=== PATIENT | female | born 1950 | race Caucasian/White ===

== ENCOUNTER → 2016-03-13 | Outpatient (REF) | payer MEDICARE ==
[2016-03-15 14:31] LABS: Lyme Disease IgG/IgM Antibodie <0.91 ISR (0.00-0.90); Lyme Disease IgM Ab Quantitati <0.80 index (0.00-0.79)
== END ==
LOC: M SFHCCLAY 10:19
PROVIDERS: ATTEND Nurse Practitioner Family
DX: Z13.89 Encounter for screening for other disorder (principal); W57.XXXA Bitten or stung by nonvenomous insect and other nonvenomous arthropods, initial encounter

== ENCOUNTER → 2016-09-26 | Outpatient (REF) | payer MEDICARE ==
[2016-09-26 11:34] LABS: MEAN CORPUSCULAR HEMOGLOBIN 32.8 pg (27.0-33.0); MEAN CORPUSCULAR HGB CONC 33.3 g/dl (32.0-36.5); MEAN CORPUSCULAR VOLUME 98.4 fl (80.0-96.0); RED CELL DISTRIBUTION WIDTH 12.2 % (11.5-14.5); WHITE BLOOD COUNT 3.8 K/mm3 (4.0-10.0)
[2016-09-26 12:56] LABS: ALBUMIN 3.7 GM/DL (3.2-5.2); ALBUMIN/GLOBULIN RATIO 1.42 (1.00-1.93); ALKALINE PHOSPHATASE 88 U/L (45-117); ALT/SGPT 23 U/L (12-78); ANION GAP 6 MEQ/L (8-16); AST/SGOT 17 U/L (15-37); BILIRUBIN,TOTAL 0.6 MG/DL (0.2-1.0); BLOOD UREA NITROGEN 17 MG/DL (7-18); CALCIUM LEVEL 9.3 MG/DL (8.8-10.2); CARBON DIOXIDE LEVEL 29 MEQ/L (21-32); CHLORIDE LEVEL 101 MEQ/L (98-107); CREATININE FOR GFR 0.66 MG/DL (0.55-1.02); GLOMERULAR FILTRATION RATE > 60.0 (>45); GLUCOSE, FASTING 92 MG/DL (80-110); POTASSIUM SERUM 4.4 MEQ/L (3.5-5.1); SODIUM LEVEL 136 MEQ/L (136-145); TOTAL PROTEIN 6.3 GM/DL (6.4-8.2)
== END ==
LOC: M SFHCCLAY 08:25
PROVIDERS: ATTEND Nurse Practitioner Family
DX: F32.9 Major depressive disorder, single episode, unspecified (principal); Z79.899 Other long term (current) drug therapy

== ENCOUNTER → 2017-04-02 | Outpatient (REF) | payer MEDICARE ==
[2017-04-02 11:52] LABS: CHOLESTEROL LEVEL 226 MG/DL (<200); CHOLESTEROL RISK RATIO 2.404 (<5); HDL CHOLESTEROL 94 MG/DL (>40); LDL CHOLESTEROL 118.8 MG/DL (<100); NON-HDL-C 132 MG/DL; TRIGLYCERIDES LEVEL 66 MG/DL (<150)
== END ==
LOC: M SFHCCLAY 08:28
DX: E78.4 Other hyperlipidemia (principal); E55.9 Vitamin D deficiency, unspecified
CPT/HCPCS: 82306

== ENCOUNTER → 2017-10-24 | Outpatient (REF) | payer MEDICARE ==
[2017-10-24 11:43] LABS: HEMATOCRIT 38.7 % (36.0-47.0); HEMOGLOBIN 12.8 g/dl (12.0-15.5); MEAN CORPUSCULAR HEMOGLOBIN 32.2 pg (27.0-33.0); MEAN CORPUSCULAR HGB CONC 33.1 g/dl (32.0-36.5); MEAN CORPUSCULAR VOLUME 97.2 fl (80.0-96.0); PLATELET COUNT, AUTOMATED 295 10^3/uL (150-450); RED BLOOD COUNT 3.98 10^6/uL (4.00-5.40); RED CELL DISTRIBUTION WIDTH 12.2 % (11.5-14.5); WHITE BLOOD COUNT 4.5 10^3/uL (4.0-10.0)
[2017-10-24 12:08] LABS: ALBUMIN 3.6 GM/DL (3.2-5.2); ALBUMIN/GLOBULIN RATIO 1.29 (1.00-1.93); ALKALINE PHOSPHATASE 85 U/L (45-117); ALT/SGPT 23 U/L (12-78); ANION GAP 8 MEQ/L (8-16); AST/SGOT 18 U/L (7-37); BILIRUBIN,TOTAL 0.8 MG/DL (0.2-1.0); BLOOD UREA NITROGEN 16 MG/DL (7-18); CALCIUM LEVEL 8.6 MG/DL (8.8-10.2); CARBON DIOXIDE LEVEL 28 MEQ/L (21-32); CHLORIDE LEVEL 106 MEQ/L (98-107); CHOLESTEROL LEVEL 183 MG/DL (<200); CHOLESTEROL RISK RATIO 1.989 (<5); CREATININE FOR GFR 0.71 MG/DL (0.55-1.30); GLOMERULAR FILTRATION RATE > 60.0 (>45); GLUCOSE, FASTING 97 MG/DL (70-100); HDL CHOLESTEROL 92 MG/DL (>40); NON-HDL-C 91 MG/DL; POTASSIUM SERUM 4.2 MEQ/L (3.5-5.1); SODIUM LEVEL 142 MEQ/L (136-145); TOTAL PROTEIN 6.4 GM/DL (6.4-8.2); TRIGLYCERIDES LEVEL 45 MG/DL (<150)
[2017-10-24 12:23] LABS: TOTAL 25(OH) VITAMIN D 25.2 NG/ML (30.0-100.0)
== END ==
LOC: M SFHCCLAY 08:22
DX: F32.9 Major depressive disorder, single episode, unspecified (principal); E78.4 Other hyperlipidemia; E55.9 Vitamin D deficiency, unspecified
CPT/HCPCS: 80053

== ENCOUNTER → 2018-10-28 | Outpatient (REF) | payer MEDICARE ==
[2018-10-28 11:40] LABS: HEMATOCRIT 39.9 % (36.0-47.0); HEMOGLOBIN 13.2 g/dl (12.0-15.5); MEAN CORPUSCULAR HEMOGLOBIN 32.9 pg (27.0-33.0); MEAN CORPUSCULAR HGB CONC 33.1 g/dl (32.0-36.5); MEAN CORPUSCULAR VOLUME 99.5 fl (80.0-96.0); PLATELET COUNT, AUTOMATED 261 10^3/uL (150-450); RED BLOOD COUNT 4.01 10^6/uL (4.00-5.40); WHITE BLOOD COUNT 4.7 10^3/uL (4.0-10.0)
[2018-10-28 12:11] LABS: ALBUMIN 3.8 GM/DL (3.2-5.2); ALT/SGPT 26 U/L (12-78); BILIRUBIN,TOTAL 0.9 MG/DL (0.2-1.0); BLOOD UREA NITROGEN 18 MG/DL (7-18); CALCIUM LEVEL 9.3 MG/DL (8.8-10.2); CARBON DIOXIDE LEVEL 31 MEQ/L (21-32); CHLORIDE LEVEL 104 MEQ/L (98-107); CHOLESTEROL LEVEL 189 MG/DL (<200); CHOLESTEROL RISK RATIO 2.197 (<5); CREATININE FOR GFR 0.68 MG/DL (0.55-1.30); GLOMERULAR FILTRATION RATE > 60.0 (>45); GLUCOSE, FASTING 95 MG/DL (70-100); HDL CHOLESTEROL 86 MG/DL (>40); LDL CHOLESTEROL 91 MG/DL (<100); NON-HDL-C 103 MG/DL; POTASSIUM SERUM 4.1 MEQ/L (3.5-5.1); SODIUM LEVEL 138 MEQ/L (136-145); TOTAL 25(OH) VITAMIN D 24.1 NG/ML (30.0-100.0); TOTAL PROTEIN 6.7 GM/DL (6.4-8.2); TRIGLYCERIDES LEVEL 59 MG/DL (<150)
== END ==
LOC: M SFHCCLAY 09:18
PROVIDERS: ATTEND Nurse Practitioner Family
DX: E78.49 Other hyperlipidemia (principal); E55.9 Vitamin D deficiency, unspecified

== ENCOUNTER → 2018-10-29 | Outpatient (REF) | payer MEDICARE ==
[2018-10-31 00:06] LABS: ANA (HEP2) Negative (.); Lyme Disease IgG/IgM Antibodie <0.91 ISR (0.00-0.90); Lyme Disease IgM Ab Quantitati <0.80 index (0.00-0.79)
== END ==
LOC: M SFHCCLAY 09:19
PROVIDERS: ATTEND Nurse Practitioner Family
DX: M79.643 Pain in unspecified hand (principal)
CPT/HCPCS: 85652; 86038; 86431; 86617; G0463

== ENCOUNTER → 2019-04-07 | Outpatient (REF) | payer MEDICARE | LOC: M LAB REF 17:24 | PROVIDERS: ATTEND Nurse Practitioner Family | DX: L08.9 Local infection of the skin and subcutaneous tissue, unspecified (principal) ==

== ENCOUNTER → 2019-10-21 | Outpatient (REF) | payer MEDICARE ==
[2019-10-28 11:23] LABS: DRVV SCREEN 33.5 SEC
[2019-10-28 11:28] LABS: PTT LUPUS TYPE ANTICOAG SCREEN 0.8 (0-1.2)
[2019-11-25 13:16] LABS: Lyme Disease IgG/IgM Antibodie See Separate Report
[2019-11-25 13:17] LABS: ANTINUCLEAR ANTIBODIES DIRECT See Separate Report
[2019-12-08 21:58] LABS: HEMATOCRIT 41.9 % (36.0-47.0); HEMOGLOBIN 13.8 g/dl (12.0-15.5); MEAN CORPUSCULAR HEMOGLOBIN 32.8 pg (27.0-33.0); MEAN CORPUSCULAR HGB CONC 32.9 g/dl (32.0-36.5); MEAN CORPUSCULAR VOLUME 99.5 fl (80.0-96.0); PLATELET COUNT, AUTOMATED 271 10^3/uL (150-450); RED BLOOD COUNT 4.21 10^6/uL (4.00-5.40); WHITE BLOOD COUNT 4.4 10^3/uL (4.0-10.0)
[2019-12-08 22:11] LABS: ERYTHROCYTE SEDIMENTATION RATE 7 mm/hr (0-30)
[2019-12-15 03:47] LABS: ALT/SGPT 28 U/L (12-78); BILIRUBIN,TOTAL 0.9 MG/DL (0.2-1.0); BLOOD UREA NITROGEN 18 MG/DL (7-18); CALCIUM LEVEL 9.2 MG/DL (8.8-10.2); CARBON DIOXIDE LEVEL 28 MEQ/L (21-32); CHLORIDE LEVEL 105 MEQ/L (98-107); CHOLESTEROL LEVEL 215 MG/DL (<200); CREATININE FOR GFR 0.64 MG/DL (0.55-1.30); GLOMERULAR FILTRATION RATE > 60.0 (>45); GLUCOSE, FASTING 89 MG/DL (70-100); HDL CHOLESTEROL 83 MG/DL (>40); LDL CHOLESTEROL 120 MG/DL (<100); NON-HDL-C 132 MG/DL; POTASSIUM SERUM 3.9 MEQ/L (3.5-5.1); RHEUMATOID FACTOR QUANT < 10.0 IU/ML (<15.0); SODIUM LEVEL 138 MEQ/L (136-145); TOTAL 25(OH) VITAMIN D 22.1 NG/ML (30.0-100.0); TOTAL PROTEIN 6.9 GM/DL (6.4-8.2); TRIGLYCERIDES LEVEL 58 MG/DL (<150)
== END ==
LOC: M SFHCCLAY 11:52
PROVIDERS: ATTEND Nurse Practitioner Family
DX: E78.5 Hyperlipidemia, unspecified (principal); F32.9 Major depressive disorder, single episode, unspecified; L30.9 Dermatitis, unspecified; M25.50 Pain in unspecified joint; Z79.899 Other long term (current) drug therapy

== ENCOUNTER → 2020-06-08 | Outpatient (REF) | payer MEDICARE ==
[2020-06-08 12:48] LABS: ALBUMIN 3.9 GM/DL (3.2-5.2); ALT/SGPT 24 U/L (12-78); BILIRUBIN,TOTAL 0.5 MG/DL (0.2-1.0); BLOOD UREA NITROGEN 23 MG/DL (7-18); CALCIUM LEVEL 9.1 MG/DL (8.8-10.2); CARBON DIOXIDE LEVEL 31 MEQ/L (21-32); CHLORIDE LEVEL 104 MEQ/L (98-107); CHOLESTEROL LEVEL 211 MG/DL (<200); CHOLESTEROL RISK RATIO 2.244 (<5); CREATININE FOR GFR 0.81 MG/DL (0.55-1.30); GLOMERULAR FILTRATION RATE > 60.0 (>45); GLUCOSE, FASTING 107 MG/DL (70-100); HDL CHOLESTEROL 94 MG/DL (>40); LDL CHOLESTEROL 108 MG/DL (<100); NON-HDL-C 117 MG/DL; POTASSIUM SERUM 4.4 MEQ/L (3.5-5.1); SODIUM LEVEL 137 MEQ/L (136-145); TOTAL 25(OH) VITAMIN D 32.9 NG/ML (30.0-100.0); TOTAL PROTEIN 6.5 GM/DL (6.4-8.2); TRIGLYCERIDES LEVEL 47 MG/DL (<150)
== END ==
LOC: M SFHCCLAY 07:50
PROVIDERS: ATTEND Nurse Practitioner Family
DX: E78.5 Hyperlipidemia, unspecified (principal); E55.9 Vitamin D deficiency, unspecified

== ENCOUNTER → 2020-07-16 | Outpatient (CLI) | payer MEDICARE ==
--- NOTE | 2020-07-16 09:16 | REPVR ---
PROCEDURE INFORMATION: Exam: MR Lumbar Spine Without Contrast Exam date and time: 07/16/2020 8:56 AM Age: 69 years old Clinical indication: Low back pain; Patient HX: Pain ddd; Additional info: Ddd L region TECHNIQUE: Imaging protocol: Multiplanar magnetic resonance images of the lumbar spine without intravenous contrast. COMPARISON: No relevant prior studies available. FINDINGS: Vertebrae: The lumbar vertebral bodies are normal in height,signal intensity and alignment.No acute fracture or dislocation is seen. Spinal epidural space: There is no evidence of epidural masses or hemorrhage. Spinal cord: The conus medullaris is normal. The cauda equina nerve roots demonstrate no crowding or displacement. L1-L2: There is a mild diffuse posterior bulge causing mild effacement of the thecal sac.The facet joints demonstrate mild degenerative hypertrophy and sclerosis.There is no evidence of spinal canal narrowing. There is mild bilateral foraminal stenosis. L2-L3: Mildly reduced in height and T2 signal indicating degeneration. Mild degenerative endplate changes with small Schmorl's nodes.There is a mild diffuse posterior bulge causing mild effacement of the thecal sac.The facet joints demonstrate mild degenerative hypertrophy and sclerosis.There is no evidence of spinal canal narrowing. There is mild bilateral foraminal stenosis. L3-L4: Mildly reduced in height and T2 signal indicating degeneration. Mild degenerative endplate changes with small Schmorl's nodes. Small diffuse posterior herniation. Moderate facet arthropathy.There is no evidence of spinal canal narrowing. There is mild bilateral foraminal stenosis. L4-L5: Moderately reduced in height and T2 signal indicating degeneration. Moderate adjacent degenerative endplate changes with small Schmorl's nodes. Small diffuse posterior herniation. Moderate facet arthropathy.There is no evidence of spinal canal narrowing. There is mild left foraminal stenosis. There is moderate right foraminal stenosis. L5-S1: Moderately reduced in height and T2 signal indicating degeneration. Moderate adjacent degenerative endplate changes with small Schmorl's nodes. Small diffuse posterior herniation. Moderate facet arthropathy.There is no evidence of spinal canal narrowing. There is mild right foraminal stenosis. There is moderate left foraminal stenosis. Soft tissues: The prevertebral soft tissues appear normal. IMPRESSION: MRI of the lumbar spine reveals multilevel degenerative spondylitic changes and degenerative disc disease as described above. Electronically signed by: Phani Eisenberg On 07/16/2020 09:15:52 AM
== END ==
LOC: M RAD 07:27
PROVIDERS: ATTEND Orthopaedic Surgery
DX: M47.896 Other spondylosis, lumbar region (principal); M51.36 Other intervertebral disc degeneration, lumbar region; M51.26 Other intervertebral disc displacement, lumbar region

== ENCOUNTER → 2021-10-12 | Outpatient (CLI) | payer MEDICARE | LOC: M LABSMTC 09:17 | PROVIDERS: ATTEND Anesthesiology | DX: Z11.52 Encounter for screening for COVID-19 (principal) ==

== ENCOUNTER 2021-10-17 08:18 | Day surgery (SDC) | payer MEDICARE ==
[~2021-10-17] VITALS: Ht 167.6 cm; Wt 57.3 kg
[~2021-10-17 08:18] MED LIST: NS 1,000 ML IV ONE
[2021-10-17] MEDS ORDERED: propofoL 200 MG/20 ML VIAL As Ordered ONE (10:23)
[2021-10-17 10:38] VITALS: BP 133/65
== END 2021-10-17 10:50 | disposition home or self-care (01) ==
LOC: M OPP 08:18
PROVIDERS: ATTEND Internal Medicine Gastroenterology
DX: Z12.11 Encounter for screening for malignant neoplasm of colon (principal); K57.30 Diverticulosis of large intestine without perforation or abscess without bleeding; K64.0 First degree hemorrhoids; G43.909 Migraine, unspecified, not intractable, without status migrainosus; J45.909 Unspecified asthma, uncomplicated; Z79.818 Long term (current) use of other agents affecting estrogen receptors and estrogen levels; Z88.8 Allergy status to other drugs, medicaments and biological substances

== ENCOUNTER → 2022-11-20 | Outpatient (CLI) | payer MEDICARE | LOC: M RAD 11:07 | PROVIDERS: ATTEND Internal Medicine Cardiovascular Disease | DX: I51.7 Cardiomegaly (principal); R06.02 Shortness of breath; I48.19 Other persistent atrial fibrillation ==

== ENCOUNTER → 2023-05-25 | Outpatient (CLI) | payer MEDICARE | LOC: M EKG 10:56 | PROVIDERS: ATTEND Internal Medicine Cardiovascular Disease | DX: I48.19 Other persistent atrial fibrillation (principal) ==

== ENCOUNTER → 2023-06-20 | Outpatient (CLI) | payer MEDICARE | LOC: M SLEEP HO 11:11 | PROVIDERS: ATTEND Internal Medicine Cardiovascular Disease | DX: I27.20 Pulmonary hypertension, unspecified (principal) ==

== ENCOUNTER → 2024-09-22 | Outpatient (CLI) | payer MEDICARE | LOC: M EKG 13:14 | PROVIDERS: ATTEND Internal Medicine Cardiovascular Disease | DX: R00.2 Palpitations (principal) ==

== ENCOUNTER 2025-01-05 12:06 | Emergency (ER) | payer MEDICARE ==
[~2025-01-05] VITALS: Ht 170.2 cm; Wt 59.7 kg
[2025-01-05 12:10] VITALS: BP 166/79; TEMP 97.5; O2SAT 99
[2025-01-05] MEDS ORDERED: ELIQ5TAB (12:17)
[2025-01-05] MEDS ORDERED: FLEC25TA (12:17)
== END 2025-01-05 12:56 | disposition home or self-care (01) ==
LOC: M ED 12:06
DX: S50.11XA Contusion of right forearm, initial encounter (principal); X58.XXXA Exposure to other specified factors, initial encounter; Y92.007 Garden or yard of unspecified non-institutional (private) residence as the place of occurrence of the external cause; Y93.89 Activity, other specified; Y99.9 Unspecified external cause status; Z79.01 Long term (current) use of anticoagulants; Z79.899 Other long term (current) drug therapy; Z88.8 Allergy status to other drugs, medicaments and biological substances